=== PATIENT | female | born 1970 | race Caucasian/White ===

== ENCOUNTER 2023-02-17 07:38 | Emergency (ER) | payer MEDICAID ==
--- NOTE | 2023-02-17 08:35 | XRAY Report ---
PROCEDURE: Wrist 4 View RT INDICATIONS: fall/pain TECHNIQUE: 3 views of the wrist were acquired. COMPARISON: None. FINDINGS: Bones: No fractures or dislocations. No suspicious bony lesions. Soft tissues: No suspicious soft tissue calcifications or masses. IMPRESSION: No visualized acute fracture or dislocation. However, occult injury cannot be excluded. Recommend james rt interval imaging follow-up in 7-10 days as clinically indicated for additional evaluation. Reviewed by: Marely Valadez MD on 02/17/2023 8:34 AM [facility] Approved by: Marely Valadez MD on 02/17/2023 8:34 AM [facility] Station ID: [id number]
--- NOTE | 2023-02-17 08:58 | ED Physician Documentation ---
PD HPI UPPER EXT INJURY - Stated complaint Stated Complaint: GLF, RT HAND INJ - Chief complaint Chief Complaint: Trauma Ext - History obtained from History obtained from: Patient - Additonal information Additional information: Patient is a 53-year-old female presenting for evaluation of right wrist injury. Patient was carrying bags as well as holding dog leashes while going upstairs and cannot recall if she tripped or was pulled forward. She denies hitting her head or having LOC. She reports injury to the right wrist. She reports the pain being a throbbing sensation and kept her up a lot of the night. She has not taken anything for the pain. No prior injuries. 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 : None HEENT: None Psych: Anxiety Musculoskeletal: None Derm: None - Past Surgical History Past Surgical History: Yes Ortho: Carpal Tunnel surgery, Other HEENT: Tonsil/Adenoidectomy - Present Medications Home Medications: Ambulatory Orders Medication Instructions Recorded Confirmed ALPRAZolam [Alprazolam] 1 - 2 tab ORAL Q12H PRN 02/17/23 02/17/23 Fluoxetine HCl [Prozac] 20 mg PO DAILY 02/17/23 02/17/23 Levothyroxine [Synthroid] 125 mcg PO QDAC 02/17/23 02/17/23 Lisdexamfetamine Dimesylate 50 mg ORAL DAILY 02/17/23 02/17/23 Lisinopril [Zestril] 40 mg PO DAILY 02/17/23 02/17/23 Montelukast [Singulair] 10 mg PO QPM 02/17/23 02/17/23 - Allergies Allergies/Adverse Reactions: Allergies Allergy/AdvReac Type Severity Reaction Status Date / Time No Known Drug Allergies Allergy Verified 02/17/23 07:57 - Social History Does the pt smoke?: No Smoking Status: Never smoker Does the pt drink ETOH?: Yes ETOH Use: Wine Does the pt have substance abuse?: No - Immunizations Immunizations are current?: Yes PD ED PE NORMAL - General General: Alert and oriented X 3, No acute distress, Well developed/nourished - HEENT HEENT: Atraumatic - Respiratory Respiratory: No respiratory distress - Extremities Extremities: Other (Mild swelling to right wrist, no snuffbox tenderness, tenderness over the dorsum, pain with extension but okay with flexion, no hand tenderness, distal pulses intact, motor and sensation grossly intact, compartments of extremity are soft) Results - Vitals Vitals: Vital Signs - 24 hr 02/17/23 02/17/23 07:57 09:05 Temperature 36 C L 36.9 C Heart Rate 71 64 Respiratory 16 16 Rate Blood Pressure 135/86 H 125/62 O2 Saturation 98 100 Oxygen O2 Source Room air PD Medical Decision Making - ED course Complexity details: reviewed results, re-evaluated patient ED course: Patient with injury to right wrist. X-ray was obtained which I reviewed I see no fracture or dislocation. She has no snuffbox tenderness. Neurovascularly intact. No tenderness over the hand. May have a sprain versus nonvisualized fracture. Will place into a splint and continue with supportive care at this time. Patient counseled on need for follow-up if her symptoms or not improving.Patient counseled on concerning symptoms to return for. Departure - Departure Disposition: 01 Home, Self Care Clinical Impression: Right wrist sprain Condition: Stable Instructions: ED Sprain Wrist Follow-Up: MIKEY AMOR [Advanced RN Practitioner] - Comments: Your x-ray does not show a broken out of place of the bone at this time. It may be a sprain and so I am placing you into a Velcro wrist splint. However sometimes fractures may not be seen on initial x-rays and if your symptoms are not getting better over the course of the next week then I would recommend close reevaluation with your primary care provider for reimaging. In the meanwhile I would continue wearing the splint as needed as well as using ice, anti- inflammatories and elevation to help with the swelling. Return to the ER if you develop worsening symptoms such as pain in a new location or uncontrolled pain. IMPRESSION: No visualized acute fracture or dislocation. However, occult injury cannot be excluded. Recommend short interval imaging follow-up in 7-10 days as clinically indicated for additional evaluation. Forms: PCP List Discharge Date/Time: 02/17/23 09:06
[2023-02-17 09:14] VITALS: BP 125/62; O2SAT 100
== END 2023-02-17 09:06 | disposition home or self-care (01) ==
LOC: ED 07:38
DX: S63.502A Unspecified sprain of left wrist, initial encounter (principal); W10.9XXA Fall (on) (from) unspecified stairs and steps, initial encounter; Y92.009 Unspecified place in unspecified non-institutional (private) residence as the place of occurrence of the external cause; I10 Essential (primary) hypertension
CPT/HCPCS: 99282; 99283

== ENCOUNTER 2023-07-18 01:31 | Emergency (ER) | payer MEDICAID ==
--- NOTE | 2023-07-18 01:48 | ED Physician Documentation ---
History of Present Illness - Stated complaint Stated Complaint: DOG BITE - Chief complaint Chief Complaint: Laceration - History obtained from History obtained from: Patient - Additonal information Additional information: HPI from patient. Patient presents with facial laceration sustained due to a dog bite. This occurred approximately 11 PM tonight. The patient met someone tonight at a store who then showed patient her dog (the dog was in the other person's car); the dog bit the patient once on the face, causing the lacerations. The patient does not know the other individual and has no information regarding the dog's immunization status. 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 : None HEENT: None Psych: Anxiety Musculoskeletal: None Derm: None - Past Surgical History Past Surgical History: Yes Ortho: Carpal Tunnel surgery, Other /GENERAL FREIGHT AGENT: Hysterectomy HEENT: Tonsil/Adenoidectomy - Present Medications Home Medications: Ambulatory Orders Medication Instructions Recorded Confirmed ALPRAZolam [Alprazolam] 1 - 2 tab ORAL Q12H PRN 02/17/23 07/18/23 Fluoxetine HCl [Prozac] 20 mg PO DAILY 02/17/23 07/18/23 Levothyroxine [Synthroid] 125 mcg PO QDAC 02/17/23 07/18/23 Lisinopril [Zestril] 40 mg PO DAILY 02/17/23 07/18/23 Montelukast [Singulair] 10 mg PO QPM 02/17/23 07/18/23 Amox/Clav 875/125 [Augmentin 1 tablet PO Q12H 7 Days #14 tablet 07/18/23 875/125 Tab] - Allergies Allergies/Adverse Reactions: Allergies Allergy/AdvReac Type Severity Reaction Status Date / Time No Known Drug Allergies Allergy Verified 07/18/23 01:44 - Social History Does the pt smoke?: No Smoking Status: Never smoker Does the pt drink ETOH?: Yes Does the pt have substance abuse?: No - Immunizations Immunizations are current?: Yes - POLST Patient has POLST: No PD ED PE NORMAL - Vitals Vital signs reviewed: Yes - General General: Alert and oriented X 3, No acute distress, Well developed/nourished PD ED PE EXPANDED - HEENT HEENT Visual: 1 - laceration (1 cm length) 2 - laceration (0.5 cm length) Results - Vitals Vitals: Vital Signs - 24 hr 07/18/23 07/18/23 01:35 03:18 Temperature 37.1 C 36.0 C L Heart Rate 90 84 Respiratory 16 16 Rate Blood Pressure 141/92 H 100/55 L O2 Saturation 100 98 Oxygen O2 Source Room air Procedures - Laceration (location) Face Length in cm: 1.5 (total length of two lacerations as documented above) Wound type: Linear Neurovascular status: Sensory intact, Motor intact, Vascular intact Anesthesia: Lidocaine 1% Wound preparation: Chlorhexadine, Irrigated copiously NS, Wound explored Skin layer closure: Nylon, Interrupted (a single simple interrupted suture is placed in the scalp laceration (within hairline)), Running (3 throw running stitch on forehead laceration), Size #-0 - enter number (5-0) Other: Patient tolerated well, No complications, Neurovascular intact, Tetanus booster given PD Medical Decision Making - ED course Complexity details: considered differential, d/w patient ED course: forehead and scalp lacerations repaired as per procedure note, above. 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 Although rabies is highly unlikely, rabies vaccination series (days 0, 3, 7, and 14) is recommended given that the dog cannot be reliably followed for 10-day observation. I discussed this with patient and she agrees with rabies vaccinations; first dose of rabavert is given in ED and patient is provided discharge instructions regarding procedure for obtaining the follow-up doses. She is also given 875mg PO augmentin for dog bite wound prophylaxis and I have electronically submitted a one-week course of augmentin to her pharmacy of choice. Return precautions reviewed. Departure - Departure Disposition: 01 Home, Self Care Clinical Impression: Dog bite of face Qualifiers: Encounter type: initial encounter Qualified Code(s): S01.85XA - Open bite of other part of head, initial encounter Condition: Good Instructions: Rabies Vaccine suspension for injection, ED Bite Dog, ED Laceration Facial Sutr Tape Prescriptions: Amox/Clav 875/125 [Augmentin 875/125 Tab] 1 tablet PO Q12H 7 Days #14 tablet Comments: Follow-up in 1 week for removal of the stitches. You can follow-up with your primary care provider for stitch removal. If this cannot be arranged in a charity shaye fashion, you can go to a walk-in clinic, urgent care center, or else return to the emergency department. As we discussed, because the dog that bit you is not known to you and it is unknown whether the dog has been vaccinated and/or can be observed for the following 10 days, out of an abundance of caution, you were given the first dose of rabies vaccination in the emergency department. You will need another dose on day 3 (today is considered "day 0"), day 7, and day 14. Please see the instr uctions within this discharge packet on how to go about getting the rest of the vaccines in the rabies vaccination series. You were also given a dose of Augmentin (antibiotic) in the emergency department to prevent wound infection. I have electronically submitted a prescription for 1-week course of the Augmentin to the [facility] in [place]. Forms: Rabies Vaccine Series (MAC) Discharge Date/Time: 07/18/23 03:20
[2023-07-18] MEDS: TETANUS/DIPHTHERIA/PERTUSSIS 0.5 ML SYRINGE IM ONE (02:01)
[2023-07-18] MEDS: BUFFERED LIDOCAINE 10 ML SYRINGE SUBQ STA (02:17)
[2023-07-18] MEDS: AMOX/CLAV 875 MG/125 MG TABLET PO STA (02:18)
[2023-07-18] MEDS: RABIES VACCINE 2.5 UNIT SYRINGE IM ONE (02:47)
[2023-07-18] MEDS: BACITRACIN ZINC OINT 1 PACKET TOP STA (02:55)
[2023-07-18 03:24] VITALS: BP 100/55; O2SAT 98
== END 2023-07-18 03:20 | disposition home or self-care (01) ==
LOC: ED 01:31
DX: S01.85XA Open bite of other part of head, initial encounter (principal); S01.05XA Open bite of scalp, initial encounter; W54.0XXA Bitten by dog, initial encounter; I10 Essential (primary) hypertension; Z23 Encounter for immunization; Z29.14 Encounter for prophylactic rabies immune globulin
CPT/HCPCS: 12011; 90471; 90472; 90675; 90715; 99283; A9270